=== PATIENT | female | born 1965 | race Caucasian/White ===

== ENCOUNTER 2016-11-25 15:03 | Inpatient (IN) | payer MEDICAID ==
[~2016-11-25] VITALS: Ht 180.3 cm; Wt 56.1 kg
--- NOTE | ~2016-11-25 | OR ---
ADMIT: 11/27/2016 RM/LOC: 309 [facility] MR#: [id number] [address] [address] JOSE PANIAGUA 6389 [facility] JIM SHELBY [address] Operative/Delivery Room Report SEX: F AGE: 51 : 1965 SURGERY DATE: 11/28/2016 SURGEON: Rober Medellin MD PRE-PROCEDURE DIAGNOSIS: Nonspecific abdominal pain. POSTPROCEDURE DIAGNOSIS: Mild gastritis. PROCEDURE: EGD with duodenal antral distal esophageal biopsies. INDICATIONS: The patient is a 51-year-old female with nonspecific abdominal discomfort who presents for upper endoscopy evaluation. FINDINGS: The patient was taken to the endoscopy suite. IV sedation was given. She was placed in left lateral decubitus position. A bite block was placed in the patient's mouth. Gastroscope introduced down the oropharynx, down the esophagus, into the stomach, through the pylorus, the duodenal bulb. Second and third portion of the duodenum appeared normal. There may have been some redundancy to the Akhil's glands and mucosa within the duodenal bulb, so I went ahead and did some biopsies partially also because of the patient's nonspecific abdominal pain complaints. She had mild changes of gastritis and antral biopsies were taken at this time. The gastric body and fundus was also unremarkable. On retroflexion view, there is no hiatal hernia. Exam of the GE junction, there is a normal squamocolumnar junction with no esophagitis. No Ramon's, no strictures. No inflammation. Multiple distal esophageal biopsies were taken. Remainder of the esophagus normal. The gastroscope was removed. The patient tolerated the procedure without difficulty. Transferred to recovery room in good condition. Rober Medellin MD/ stevan JOB #: [id number] CC: Ebenezer Zazueta, Attending Physician Ebenezer Zazueta, Family Physician
--- NOTE | 2016-11-26 09:55 | CO ---
ADMIT: 11/25/2016 RM/LOC: 501 [facility] MR#: [id number] [address] [facility] [address] [place] [id number] JESSIE PANIAGUA [address] [place] [address] Consultation SEX: F AGE: 51 : 1965 DATE OF CONSULTATION: 11/25/2016 ATTENDING PHYSICIAN: Ebenezer Zazueta CONSULTING PHYSICIAN: Rober Medellin MD REASON FOR CONSULTATION: Abdominal pain. HISTORY OF PRESENT ILLNESS: Jessie is a 51-year-old female, who complains of abdominal pain. She believes that has been going on for couple of days. Of note, she is a poor historian and has past medical history of alcoholic encephalopathy. However, she has been apparently sober for since one year ago. The patient has difficulty establishing a timeline. She states that she has been nauseous and has been throwing up. It does not know for how long. She has not been able to keep any food down, but rather has just been "sleeping" most of the time. She denies any fever, chills, night sweats, hematemesis, or changes to her bowels. Her last bowel movement she believes was the day before last, but is unsure. PAST MEDICAL HISTORY: According to documentation, significant for peptic ulcer disease and alcoholic encephalopathy. PAST SURGICAL HISTORY: The patient does not remember any past surgeries. ALLERGIES: NO KNOWN DRUG ALLERGIES. FAMILY HISTORY: Noncontributory. SOCIAL HISTORY: The patient is a tobacco user and former alcohol user about a year ago. She does not remember how much she used to drink. REVIEW OF SYSTEMS: CONSTITUTIONAL: The patient denies any fever, chills, or night sweats. The rest of a comprehensive 10-point review of systems was performed and all other systems are negative. PHYSICAL EXAMINATION: GENERAL: The patient is in no acute distress. She is cachectic in appearance. HEENT: Head is normocephalic and atraumatic. EOMS are intact. Conjunctivae free of icterus, erythema, or pallor. Pinnae, free of deformities. Nose, midline. No tracheal deviation. Temporal wasting noted. NECK: Supple. SKIN: Negative for jaundice, clubbing, edema, pallor, or cyanosis. LUNGS: Normal respiratory effort. HEART: Distal pulses intact. ABDOMEN: Soft and nondistended. Tenderness in epigastric region radiating to the right upper quadrant. Severe malnutrition noted. Ecchymosis also noted on right ASIS. NEURO: Grossly intact. ADMIT: 11/25/2016 RM/LOC: 501 [facility] MR#: [id number] [address] [address] SIVA JESSIE S [address] [place], [place] [id number] Consultation SEX: F AGE: 51 : 1965 LABORATORY DATA: Pending. DIAGNOSTIC IMAGING: Pending. ASSESSMENT: 1. Abdominal pain of undetermined duration. 2. Malnourishment. PLAN: After numerous attempts recommending upper endoscopy, the patient has refused any such interventions. I discussed the importance of having these done and not having good clinical picture should these modalities be refused, but the patient was adamant on not having any other interventions. She actually stated after having a meal that she started to feel better. We will follow her along in the hospital and I will update Dr. Medellin. Thanks for the consultation on this patient. DONNIE Sol / Rober Medellin MD / stevan JOB #: [id number] CC: Ebenezer Zazueta, Attending Physician Ebenezer Zazueta, Family Physician
--- NOTE | 2016-11-26 15:30 | HP ---
ADMIT: 11/25/2016 RM/LOC: 501 [facility] MR#: [id number] [address] [facility] [address] [place], [place] [address] JOSE PANIAGUA [place] [address] [place] [address] History and Physical SEX: F AGE: 51 : 1965 DATE OF SERVICE: CHIEF COMPLAINT: Nausea, poor appetite, abdominal pain with weight loss and weakness. CLINICAL HISTORY: The patient is a 51-year-old disabled female with significant neurocognitive impairment due to alcoholic encephalopathy. The patient is noted to be in forced sobriety at this time since living with her sister who is her guardian. The patient is originally from [place], [place]. The patient, in October of 2015, was hospitalized briefly at [facility] with alcohol withdrawal seizures leading to aspiration pneumonia and acute respiratory failure. She was transferred from [facility] in mid November to [facility] in [place] with acute respiratory failure, sepsis, and on a ventilator. She was transferred for Critical Care. While hospitalized at [facility], she had an acute GI bleed and was found to have extensive gastric stress ulcerations of her stomach that she had developed while she was sedated on the ventilator. She had a significant GI bleed. Ultimately, she recovered from that critical illness and was admitted to [facility] on 12/12/2015. She required senior care care because of her severe debility and severe alcoholic encephalopathy with neurocognitive impairment. She was in the senior care from November of 2015 through May of 2016, she was under my care at that time. She made enough progress, we were able to dismiss her to her sister's home in late May of 2016 and she has been living there for the past 6 months. However, over the last 2-3 months, she has had significant decline in status. She has had recurring severe epigastric pain and abdominal discomfort. Her appetite has declined significantly. She has been eating very little. She has had over a 30 pounds weight loss over the last 3 months due to her inability to eat or her refusal to eat. She has gotten so weak, she is having trouble ambulating at her sister's home. Her weight is down to 104 pounds. It should be noted when she left the senior care, she was over 145 pounds. She has been having protracted nausea, but only occasional vomiting. She has had no melena, hematemesis, or hematochezia at this time although she did have history of significant GI bleed in November of 2015. As noted, at that time, she had large gastric stress ulcers, healed with aggressive medical management. In addition to her history of chronic alcoholic gastritis, stress ulcers, she also has a history of alcoholic liver disease with fatty liver and steatohepatitis. As noted, with her recent weight loss, she has gotten extremely weak, is unable to care for herself at her sister's home. She was seen in our office on 11/25/2016 and was felt to be significantly malnourished as well as dehydrated. In view of her marked decline in status and with her high risk for falling at home, it was felt best to admit at this time for urgent evaluation of her abdominal pain as well as to treat for her dehydration and malnutrition. The patient herself is an extremely poor historian because of her alcoholic encephalopathy. She has severe memory impairment and is unreliable historian. Do note though that she has been sober now for a year since her event in November of 2015. PAST MEDICAL HISTORY: The patient was, as noted, hospitalized at [facility] ADMIT: 11/25/2016 RM/LOC: 501 [facility] MR#: [id number] [address] [address] JOSE PANIAGUA [facility] [place] [address] History and Physical SEX: F AGE: 51 : 1965 [facility] in mid October of 2015, hospitalized with acute pancreatitis, acute alcohol withdrawal, alcohol withdrawal seizures, ultimately developing aspiration pneumonia which led to acute respiratory failure necessitating ventilator support. She was then transferred from [facility] to [facility] being admitted to [facility] on 11/10/2015. Her condition deteriorated and on 11/10/2015, she was transferred to [facility] with acute hypoxic respiratory failure, withdrawal seizures and DTs, with acute pancreatitis, aspiration pneumonia, acute GI bleed, and acute blood loss anemia. Also during that hospitalization, she had a ehc-ET-zoinhdoth myocardial infarction. She was felt to have significant alcoholic encephalopathy. Other than for that extended hospitalization which began in mid October, she essentially was in the hospital for 30 days at [facility] being admitted on 11/10/2015 and transferred on 12/12/2015 to the [facility]. She had an extended 10-12 days course of ventilator support for her aspiration pneumonia. Her past problems include: 1. Acute hypoxic respiratory failure. 2. Previous GI bleed. 3. Alcohol use disorder, severe. 4. Alcoholic withdrawal seizures. 5. Alcoholic DTs. 6. Metabolic encephalopathy. 7. Aspiration pneumonia. 8. Stc-TM-trthdkpxx WV. 9. Rhabdomyolysis. 10.She was noted during that admission to have gallstones with some thickening of the gallbladder wall. 11.History of type 2 diabetes. 12.Chronic anxiety disorder. 13.Chemical-induced mood disorder. ALLERGIES: NO KNOWN ALLERGIES. PAST SURGICAL HISTORY: Previous surgeries: The patient did have EGD done on two occasions during that extended stay at [facility] last year, she had one early in the course of her hospitalization and then a later EGD to confirm healing of her ulcers. In addition to those two EGDs, does have a history of tonsillectomy as a child. She also has a history of previous breast augmentation surgery. CURRENT MEDICATIONS: 1. Wellbutrin XL 150 mg one daily. 2. Combivent Respimat 1 puff q.i.d. 3. Fluoxetine 20 mg daily. 4. Januvia 100 mg daily. 5. Keppra 500 mg b.i.d. 6. Namenda 10 mg 1/2 tablet twice daily. 7. Omeprazole 20 mg b.i.d. 8. Seroquel 100 mg one daily at bedtime and 25 mg b.i.d. ADMIT: 11/25/2016 RM/LOC: 501 [facility] MR#: [id number] [address] [facility] [address] [place] [address] JOSE PANIAGUA [place] [address] [place] [address] History and Physical SEX: F AGE: 51 : 1965 9. Symbicort 160/4.5, two puffs b.i.d. 10.Thiamine 100 mg daily. SOCIAL HISTORY: The patient is single. Her sister is currently her guardian. The patient has a history of former heavy smoking. Since getting out of the senior care, she has resumed smoking but they have tried to limit her to no more than one or two cigarettes a day. She has a history of both alcohol and drug abuse in the past. She primarily was an alcoholic, but did abuse street drugs in the past as well, but alcohol is her drug of choice. She has been sober and clean now for one year. FAMILY HISTORY: There is a family history of hypertension, diabetes, alcoholism, and depression. REVIEW OF SYSTEMS: CONSTITUTIONAL: The patient has not felt well for the last year. She complains of fatigue, malaise, and just generally feeling weak. Her sister, who is her caregiver, has seen a marked decline in the last 6-8 weeks. She has had significant weight loss of 30 pounds weight loss over the last 3 months. Appetite is extremely poor. She eats very little. HEENT: She has had no headaches or any other new eye, ear, nose, or throat complaints. She denies any vision change. She does have significant periodontal disease with numerous carious and broken teeth. She has some chronic jaw pain due to her periodontal disease. PULMONARY: She is a smoker. History of respiratory failure, requiring ventilator support one year ago. The six months she was at the senior care, she did not smoke. Resumed smoking upon discharge from the senior care. Has an occasional cough. CARDIAC: History of hec-HF-ywgqfgmvc WV a year ago. No other significant cardiac history. No recent chest pain or palpitations. Does have significant orthostatic symptoms. GASTROINTESTINAL: As noted, appetite is decreased. She denies swallowing difficulty, but complains of postprandial abdominal discomfort, diffuse abdominal pain with nausea. She has had no melena or hematochezia. GENITOURINARY: No voiding symptoms. Significantly decreased urine output over the last few weeks. ENDOCRINE: She does have a history of type 2 diabetes but since she has not been eating and has lost so much weight, blood sugars have been running significantly low. MUSCULOSKELETAL: Diffuse weakness. Very unsteady on her feet. Significant fall risk. NEUROLOGIC: Persistent neurocognitive deficit. Significant memory impairment. Significant impairment in judgment. Remainder of her review of systems is negative. PHYSICAL EXAMINATION: VITAL SIGNS: At this time, her current weight is 104 pounds. Blood pressure was 98/64, pulse is 98, temp is 97, respirations 18, O2 saturation 94%. ADMIT: 11/25/2016 RM/LOC: 501 [facility] MR#: [id number] [address] [place] [phone] [place] [address] History and Physical SEX: F AGE: 51 : 1965 GENERAL: The patient is a 51-year-old female, who appears significantly older than her stated age. She is in no acute distress. She is disoriented to time, place, and person. She has significant neurocognitive impairment and short-term memory impairment. The patient needs supervision of all ADLs. HEENT: Her ears are clear. Pupils are equal and reactive. Sclerae nonicteric. Conjunctivae noninflamed. Her oropharynx reveals broken teeth and numerous carious teeth with periodontal disease. No oral lesions. Dentition is in very poor repair. NECK: Supple. Thyroid not enlarged. No cervical adenopathy. LUNGS: Noted to be clear anteriorly, but diminished in the bases. No dullness to percussion. HEART: Has a regular rhythm. No murmurs. ABDOMEN: Thin, scaphoid, diffusely tender across the upper abdomen. Tender in the right upper quadrant. Tender in the epigastrium. I cannot appreciate any masses or organomegaly. Gallbladder is not palpable. Bowel sounds at this time are hypoactive. BREASTS: Exam not performed at this time. PELVIC: Exam not performed at this time. EXTREMITIES: Noted to have 1+ pedal and ankle edema. Marked generalized muscle weakness. Diffuse sarcopenia. Her strength is quite diminished. She has trouble standing from a chair and once standing, her balance is poor. Gait is very unsteady. She is having significant orthostatic symptoms and dizziness whenever she goes from lying to sitting or lying to standing. I can see no new focal, motor, or sensory deficit but severe global neurocognitive impairment. INTEGUMENT: No rashes or areas of skin breakdown. ASSESSMENT AT THIS TIME: 1. Persistent severe epigastric and right upper quadrant abdominal pain. 2. Past history of gastric ulcers with prior gastrointestinal bleed. 3. History of cholelithiasis, suspect possible cholecystitis. 4. Past history of alcoholic pancreatitis. 5. Dehydration. 6. Malnutrition with significant weight loss. 7. Severe neurocognitive impairment. 8. Alcoholic encephalopathy. 9. Type 2 diabetes. 10.Alcohol use disorder, in full sustained remission. 11.Chronic obstructive pulmonary disease. ADMIT: 11/25/2016 RM/LOC: 501 [facility] MR#: [id number] [address] [facility] [address] [place] [phone] JOSE PANIAGUA [facility] [place] [address] History and Physical SEX: F AGE: 51 : 1965 12.Tobacco use disorder. PLAN: Plan is to admit the patient to [facility] to try and stabilize her nutritional status and to pursue urgent evaluation of her abdominal pain. We will get appropriate laboratory work to rule out acute cholecystitis and rule out acute pancreatitis. We will get CT of the abdomen and pelvis, as well as ultrasound of the abdomen and pelvis. We will ask [facility] to see her in consultation. Do feel she needs another EGD. We need to settle down her abdominal pain and nausea, and try to improve her nutrition. May even need to consider placement of a gastrostomy tube for tube feedings in view of her significant malnutrition. We will admit to [facility], proceed with workup and consultations as ordered. Ebenezer Zazueta MD/ stevan JOB #: [id number] CC: Ebenezer Zazueta, Attending Physician Ebenezer Zazueta, Family Physician
[2016-12-03] MEDS ORDERED: JANUVIA100 MG PO (14:38)
[2016-12-03] MEDS ORDERED: BUPROPION XL150 MG PO (14:38)
[2016-12-03] MEDS ORDERED: PROZAC DPS20 MG PO (14:38)
[2016-12-03] MEDS ORDERED: SEROQUEL25 MG PO (14:39)
[2016-12-03] MEDS ORDERED: NAMENDA10 MG PO (14:39)
[2016-12-03] MEDS ORDERED: KEPPRA DPS500 MG PO (14:39)
[2016-12-03] MEDS ORDERED: SYMBICORT160 MCG/6 IH (14:39)
[2016-12-03] MEDS ORDERED: PROTONIX40 MG PO (14:40)
[2016-12-03] MEDS ORDERED: COMBIVENT RESPIM4 G1 IH (14:40)
[2016-12-03] MEDS ORDERED: VENOFER200 MG/10 IV (14:40)
[2016-12-03] MEDS ORDERED: MICRO-K DPS10 MEQ PO (14:41)
[2016-12-03] MEDS ORDERED: LEVEMIR100 UNIT/1 SQ (14:41)
[2016-12-03] MEDS ORDERED: CARAFATE DPS1 GM PO (14:41)
[2016-12-03] MEDS ORDERED: NORMAL SALINE FL5 ML IV (14:42)
[2016-12-03] MEDS ORDERED: NOVOLOG100 UNIT/2 SQ (14:42)
[2016-12-03] MEDS ORDERED: COLACE-DPS100 MG PO (14:43)
[2016-12-03] MEDS ORDERED: MAALOX DPS30 ML PO (14:43)
[2016-12-03] MEDS ORDERED: NORCO 5-325 TA1 EACH PO (14:43)
[2016-12-03] MEDS ORDERED: GLUTOSE 1537.5 GM PO (14:43)
[2016-12-03] MEDS ORDERED: TYLENOL DPS325 MG PO (14:44)
[2016-12-03] MEDS ORDERED: GLUCAGON HCL1 MG IM (14:44)
--- NOTE | 2016-12-24 11:41 | CO ---
ADMIT: 11/25/2016 RM/LOC: 420 [facility] MR#: [id number] [address] [address] [place] [address] Consultation SEX: F AGE: 51 : 1965 DATE OF CONSULTATION: 11/25/2016 ATTENDING PHYSICIAN: Ebenezer Zazueta MD CONSULTING PHYSICIAN: Rober Medellin MD ADDENDUM: HISTORY OF PRESENT ILLNESS: The patient is a referral from Dr. Zazueta for 51- year-old female, [place] patient, who has a history of I believe alcohol, possibly drug abuse, who comes in with complaints of abdominal discomfort, poor oral intake, and weight loss. The patient is quite cachectic and poor historian. It is difficult to get much of the history from her, when visiting with her, she was eating a hamburger, not describing a lot of discomfort, but I was asked to see her for upper endoscopy evaluation and possible other causes of her chronic complaints of abdominal pain. She denies melena or hematochezia. Has had weight loss, but again she was very difficult to obtain clear historical information on her health. Past medical and surgical history, allergies, family history, social history, review of systems are unchanged from Surjit's note. PHYSICAL EXAMINATION: GENERAL: She is in no acute distress. She is quite cachectic and thin. NECK: She had no adenopathy. HEART: Regular. LUNGS: Clear. ABDOMEN: Soft, nondistended, mildly tender to deep palpation in the epigastrium. EXTREMITIES: No peripheral edema. NEUROLOGIC: No focal neurologic deficits. ASSESSMENT AND PLAN: The patient is 51-year-old, I will work on getting her lined up for upper endoscopy evaluation to rule out peptic ulcer disease. Pending those findings, she may need further workup regarding gallbladder pathology etc. After having this discussion with her, she has refused endoscopy workup. We will await to hear how her clinical course progresses. Rober Medellin MD/ stevan JOB #: [id number] CC: Ebenezer Zazueta MD, Attending Physician Ebenezer Zazueta MD, Family Physician
--- NOTE | 2016-12-24 11:41 | OR ---
ADMIT: 11/27/2016 RM/LOC: 420 [facility] MR#: [id number] [address] [place] [address] [place], [place] [address] JOSE PANIAGUA [address] [place] [address] Operative/Delivery Room Report SEX: F AGE: 51 : 1965 SURGERY DATE: 12/01/2016 SURGEON: Rober Medellin MD PLASTIC TILE SETTER: Nicol Lock APRN PROCEDURE DIAGNOSIS: Chronic cholecystitis. POSTPROCEDURE DIAGNOSIS: Chronic cholecystitis. PROCEDURE: Laparoscopic cholecystectomy with intraoperative cholangiogram. INDICATIONS: The patient is a 51-year-old with signs, symptoms, and radiographic evidence suggestive of chronic cholecystitis, who presents for laparoscopic cholecystectomy. FINDINGS: The patient was taken to the operating room. General endotracheal anesthesia was induced. The patient's abdomen was prepped and draped in normal sterile fashion. The case was begun by making a transverse, supraumbilical 5 mm skin incision using #11 blade. A retractable 5 mm port was placed within the abdomen. The abdomen was insufflated with CO2 to an intra-abdominal pressure of 15 mmHg. A camera was placed showing no bowel or vascular injury. A midepigastric 11 mm port as well as 2 right upper quadrant 5 mm ports were placed under direct vision. The case was begun by grasping the fundus and infundibulum of the gallbladder using atraumatic clamps. A [place] instrument was used to dissect out the cystic duct and artery without difficulty. Two clips were applied proximally, one distally on the artery and the artery was severed. A proximal clip was placed on the duct. The duct was cut in half. The cholangiogram was shot, showing no filling defects with contrast flow into the duodenum as well as intrahepatic ductal filling of contrast. The cholangiogram catheter was then removed. Two distal cystic duct clips were applied. Remainder of the duct was then severed. The remainder of dissection was then carried out using electrocautery from a posterior to anterior fashion, removing the gallbladder from liver bed. The gallbladder was placed in an ADMIT: 11/27/2016 RM/LOC: 420 [facility] MR#: [id number] 2620 [facility] [address] [place] [id number] JOSE PANIAGUA [address] [place] [address] Operative/Delivery Room Report SEX: F AGE: 51 : 1965 EndoCatch bag and brought out through the midepigastric port site. On reexamination of the operative site, there was a mild amount of liver bed bleeding, controlled with electrocautery. The clips were in good position. There was no further bleeding. No bile leakage. The area was then irrigated and suctioned out. 0.5% Marcaine was then injected subdermally and subfascially for postoperative analgesia. The midepigastric fascial incision was closed with [id number] 0 Polysorb suture passer. The air was desufflated. The port sites removed. The skin sites were closed with interrupted 4-0 Vicryl subcuticular skin stitches. Wounds were cleaned and dried. Steri-Strips and Tegaderm were applied over the top. Needle, sponge, and instrument counts were correct at the end of case. The patient was extubated and wheeled to the recovery in good condition. Rober Medellin MD/ stevan JOB #: [id number] CC: Ebenezer Zazueta, Attending Physician Ebenezer Zazueta, Family Physician
--- NOTE | 2017-01-05 12:51 | DS ---
ADMIT: 11/25/2016 RM/LOC: [facility] MR#: [id number] [address] [address] [place] [address] General Discharge Summary SEX: F AGE: 51 : 1965 ADMISSION DATE: 11/25/2016 DISCHARGE DATE: 12/02/2016 ADMITTING DIAGNOSIS: As per history and physical. FINAL DIAGNOSES: 1. Chronic cholecystitis, status post laparoscopic cholecystectomy. 2. Protein-calorie malnutrition. 3. Pancytopenia. 4. Chronic pancreatitis. 5. Alcoholic encephalopathy. 6. Dehydration. 7. Dementia-related anorexia. 8. Escherichia coli urinary tract infection. 9. Chronic gastritis. 10.Type 2 diabetes with hyperglycemia. 11.History of prior mub-PO-nigwgey elevation myocardial infarction. 12.Nicotine dependence, in full sustained remission. 13.Chronic gastroesophageal reflux disease/esophageal reflux. 14.Alcohol dependence, in full sustained remission. 15.Chronic obstructive pulmonary disease. 16.Fatty liver secondary to past alcohol abuse. 17.Multiple dental caries. 18.Generalized anxiety disorder. 19.Severe neurocognitive impairment. COMPLICATIONS: None. PROCEDURES: The patient had a laparoscopic cholecystectomy on 12/01/2016. The patient had EGD with biopsies on 11/28/2016. The patient also had a placement of a central line on 11/26/2016, for parenteral hyperalimentation. COMPLICATIONS: None. OPERATIONS: None. CLINICAL HISTORY: Jose Paniagua is a 51-year-old disabled female with history of severe neurocognitive impairment due to her alcoholic encephalopathy. The patient has been sober since November 2015, primarily due to her skilled nursing confinement. The patient suffered alcohol withdrawal seizures with associated aspiration pneumonia in October 2015, ended up having a prolonged hospitalization in [place] at [facility]. In late November of 2015, she was transferred to the [facility] as when I assumed her care. She resided at the [facility] for 6 months. The last 6 months she has been living with her sister, but has progressively decline in status over the last couple of months. She has been refusing to eat. At times, complains of abdominal pain in her upper abdomen, has intermittent nausea, and has had significant weight loss of over 30 pounds since leaving the skilled nursing 6 months ago. She was seen in our office, found to be extremely weak, ADMIT: 11/25/2016 RM/LOC: [address] [facility] MR#: [id number] [address] [address] [place] [address] General Discharge Summary SEX: F AGE: 51 : 1965 dehydrated, and malnourished, and for that reason, was admitted on 11/25/2016. For further details of her clinical history as well as past medical history and pertinent findings on physical exam, please see dictated history and physical. LABORATORY AND X-RAY SUMMARY FROM THIS ADMISSION: Her initial CBC showed a white count of 7300, hemoglobin 13.1, and hematocrit 36.2. On 11/27/2016, her white count was 6100, hemoglobin 11.2, that was following her rehydration. At discharge, her white count was 4100, hemoglobin was down to 7.7 with a hematocrit of 23.6. On admission, her INR was elevated at 1.20 and protime was 12.6. Urinalysis on admission was infected with 3+ leukocyte esterase, negative nitrites; she did have 68 wbc's per high-power field, consistent with urinary tract infection. Urine culture did grow out E. Coli. Stools were negative for occult blood x3. Chemistry studies were checked serially on admission, her sodium was 137, potassium was 4.2, BUN was 12 with a creatinine of 1.5, and blood sugar was 265. At discharge, her sodium was 140, potassium was 3.8, BUN was 11, and serum creatinine was 0.6. Her serum albumin is low at 1.1. Fingerstick blood sugars were monitored q.i.d. because of her diabetes, they ranged from a low of 123 to a high of 430 with numerous readings in the 300s and 400s. Her free T4 and TSH were both normal. Hemoglobin A1c was normal at 5.4 on admission. Blood cultures drawn on admission showed no growth. Urine culture did grow out E. Coli. Blood type was noted to be A positive with a negative antibody screen. X-ray studies included a CT of her head on admission, which showed no acute changes. CT of her abdomen and pelvis showed changes of chronic pancreatitis, but otherwise no other significant pathology. The patient did have a tunneled central venous line placed for IV fluids and parenteral hyperalimentation. The patient did have HIDA scan of the gallbladder, which showed poor gallbladder contractility, consistent with chronic cholecystitis. Chest x-rays showed no acute findings during this hospitalization. Abdominal ultrasound did show fatty infiltration of the liver with evidence of cholelithiasis and changes of chronic cholecystitis. Her EKG showed normal sinus rhythm with some nonspecific ST-T wave changes. HOSPITAL COURSE: The patient was admitted with dehydration and malnutrition with protracted nausea. Her severe neurocognitive impairment certainly complicates her care. She is an unreliable historian, is unable to provide any useful history, but it did appear she was having significant abdominal pain. Surgical consult was obtained and ultimately she underwent both EGD and ultimately a laparoscopic cholecystectomy during this hospitalization. She did improve with hydration and parenteral hyperalimentation. Unfortunately, her mental status never improved. Her cognition remain severely impaired. She tolerated her TPN and aggressive treatment of her malnutrition. She had no other complicating issue. She was treated for her E. Coli UTI during this hospitalization. Her blood sugars were managed with sliding scale insulin. Her blood sugars were quite erratic depending on her oral intake. Also her hyperalimentation caused her sugars run high as well. Ultimately, she did have a laparoscopic cholecystectomy and was dismissed on her 1st postoperative ADMIT: 11/25/2016 RM/LOC: [address] [facility] MR#: [id number] [address] [address] [place] [address] General Discharge Summary SEX: F AGE: 51 : 1965 day, to [facility]. The patient will need long-term rehab, and with her neurocognitive impairment, really do not feel that she can function in any type of independent living situation. The patient was dismissed to [facility] on 12/02/2016, with planned follow up at the skilled nursing within the next 7 days. She was given IV Venofer for her anemia at discharge as well with planned labs to be drawn at the skilled nursing on 12/07/2016. DISCHARGE MEDICATIONS: Her medications at dismissal were to include: 1. Carafate 1 g t.i.d. 2. Januvia 100 mg daily. 3. Keppra 500 mg b.i.d. 4. Micro-K 10 mEq b.i.d. 5. Namenda 5 mg b.i.d. 6. Omeprazole 20 mg b.i.d. 7. Prozac 20 mg daily. 8. Seroquel 25 mg b.i.d. 9. Wellbutrin XL 150 mg daily. 10.Combivent Respimat 1 puff q.i.d. 11.Symbicort 160/4.5, two puffs b.i.d. 12.Levemir 10 units at bedtime. 13.NovoLog via sliding scale q.i.d. 14.Colace p.r.n. constipation. 15.Glutose 75 g p.r.n. signs or symptoms of hypoglycemia. 16.Lortab 5/325, one or two every 6 hours for pain. 17.Maalox p.r.n. indigestion. 18.Tylenol p.r.n. minor discomfort. 19.Glucagon 1 mg intramuscularly p.r.n. severe hypoglycemia. 20.IV Venofer 200 mg x1 on Wednesday12/07/2016. CONDITION AT DISCHARGE: Stable and improved. PROGNOSIS: Long-term prognosis is poor due to her severe neurocognitive impairment. Ebenezer Zazueta MD/ omarl JOB #: [id number] CC: Ebenezer Zazueta MD, Attending Physician Ebenezer Zazueta MD, Family Physician
[2017-01-08] MEDS ORDERED: ACTOS15 MG PO (08:43)
[2017-01-08] MEDS ORDERED: AUGMENTIN 250250 MG PO (08:43)
[2017-01-08] MEDS ORDERED: ACCUCHECKS (08:44)
[2017-01-08] MEDS ORDERED: WELLBUTRIN SR150 M1 PO (08:45)
[2017-01-08] MEDS ORDERED: DULERA 200/58.8 GM IH (08:46)
[2017-01-08] MEDS ORDERED: KENALOG CR 0.0280 GM TP (08:46)
[2017-01-08] MEDS ORDERED: ATIVAN-DPS1 MG PO (08:47)
[2017-02-09] MEDS ORDERED: FLAGYL-DPS500 MG PO (15:08)
[2017-02-09] MEDS ORDERED: SEROQUEL100 MG PO (15:13)
[2017-02-09] MEDS ORDERED: HYDROCODON-ACE1 EAC2 PO (15:13)
[2017-02-09] MEDS ORDERED: KLOR-CON M2020 ME1 PO (15:13)
[2017-02-09] MEDS ORDERED: DUONEB DPS3 ML IH (15:16)
[2017-02-09] MEDS ORDERED: PULMICORT0.5 MG/21 IH (15:16)
[2017-02-09] MEDS ORDERED: NYSTATIN CREAM15 GM TP (15:17)
[2017-02-09] MEDS ORDERED: NICOTINE PATCH1 EAC5 TP (15:18)
[2017-02-09] MEDS ORDERED: MYCOSTATIN PWD15 GM TP (15:20)
== END 2016-12-02 15:48 | disposition home or self-care (01) | DRG 417 ==
LOC: 5MS 15:03 → 4PCU 11-27 09:00 → 3ICU 11-27 09:00 → 5MS 11-27 09:43 → 3ICU 11-27 10:34 → 4PCU 11-28 19:33 → 3ICU 11-28 19:33 → 4PCU 12-02 10:18
PROVIDERS: ADMIT Family Medicine
PROC: 02H633Z Insertion of Infusion Device into Right Atrium, Percutaneous Approach (ICD-10-PCS; 2016-11-26)
PROC: 0JH63XZ Insertion of Tunneled Vascular Access Device into Chest Subcutaneous Tissue and Fascia, Percutaneous Approach (ICD-10-PCS; 2016-11-26)
PROC: 3E0436Z Introduction of Nutritional Substance into Central Vein, Percutaneous Approach (ICD-10-PCS; 2016-11-27)
PROC: 02HV33Z Insertion of Infusion Device into Superior Vena Cava, Percutaneous Approach (ICD-10-PCS; 2016-11-27)
PROC: 0DB38ZX Excision of Lower Esophagus, Via Natural or Artificial Opening Endoscopic, Diagnostic (ICD-10-PCS; 2016-11-28)
PROC: 0DB78ZX Excision of Stomach, Pylorus, Via Natural or Artificial Opening Endoscopic, Diagnostic (ICD-10-PCS; 2016-11-28)
PROC: 0DB98ZX Excision of Duodenum, Via Natural or Artificial Opening Endoscopic, Diagnostic (ICD-10-PCS; 2016-11-28)
PROC: BF101ZZ Fluoroscopy of Bile Ducts using Low Osmolar Contrast (ICD-10-PCS; principal; 2016-12-01)
PROC: 0FT44ZZ Resection of Gallbladder, Percutaneous Endoscopic Approach (ICD-10-PCS; principal; 2016-12-01)
DX: K80.10 Calculus of gallbladder with chronic cholecystitis without obstruction (principal); E43 Unspecified severe protein-calorie malnutrition; D61.818 Other pancytopenia; K86.1 Other chronic pancreatitis; G31.2 Degeneration of nervous system due to alcohol; E86.0 Dehydration; Z68.1 Body mass index [BMI] 19.9 or less, adult; N39.0 Urinary tract infection, site not specified; B96.20 Unspecified Escherichia coli [E. coli] as the cause of diseases classified elsewhere; K29.70 Gastritis, unspecified, without bleeding; E11.65 Type 2 diabetes mellitus with hyperglycemia; I25.2 Old myocardial infarction; F17.210 Nicotine dependence, cigarettes, uncomplicated; K21.9 Gastro-esophageal reflux disease without esophagitis; F10.21 Alcohol dependence, in remission; J44.9 Chronic obstructive pulmonary disease, unspecified; K70.0 Alcoholic fatty liver; K02.9 Dental caries, unspecified; F41.9 Anxiety disorder, unspecified; Z79.84 Long term (current) use of oral hypoglycemic drugs; Z87.11 Personal history of peptic ulcer disease

== ENCOUNTER → 2016-12-07 | Outpatient (CLI) | payer MEDICAID ==
[~2016-12-07] MED LIST: ACCUCHECKS; ACTOS15 MG PO; ATIVAN-DPS1 MG PO; AUGMENTIN 250250 MG PO; BUPROPION XL150 MG PO; CARAFATE DPS1 GM PO; COLACE-DPS100 MG PO; COMBIVENT RESPIM4 G1 IH; DULERA 200/58.8 GM IH; DUONEB DPS3 ML IH; FLAGYL-DPS500 MG PO; GLUCAGON HCL1 MG IM; GLUTOSE 1537.5 GM PO; HYDROCODON-ACE1 EAC2 PO; JANUVIA100 MG PO; KENALOG CR 0.0280 GM TP; KEPPRA DPS500 MG PO; KLOR-CON M2020 ME1 PO; LEVEMIR100 UNIT/1 SQ; MAALOX DPS30 ML PO; MICRO-K DPS10 MEQ PO; MYCOSTATIN PWD15 GM TP; NAMENDA10 MG PO; NICOTINE PATCH1 EAC5 TP; NORCO 5-325 TA1 EACH PO; NORMAL SALINE FL5 ML IV; NOVOLOG100 UNIT/2 SQ; NYSTATIN CREAM15 GM TP; PROTONIX40 MG PO; PROZAC DPS20 MG PO; PULMICORT0.5 MG/21 IH; SEROQUEL100 MG PO; SEROQUEL25 MG PO; SYMBICORT160 MCG/6 IH; TYLENOL DPS325 MG PO; VENOFER200 MG/10 IV; WELLBUTRIN SR150 M1 PO
== END | disposition home or self-care (01) ==
LOC: THER.SSS 10:12
DX: D50.9 Iron deficiency anemia, unspecified (principal); D53.9 Nutritional anemia, unspecified